=== PATIENT | female | born 2000 | race Caucasian/White ===

== ENCOUNTER 2024-07-13 06:17 | Emergency (ER) | payer OTHER, SELFPAY ==
[2024-07-13 06:18] VITALS: BP 125/70
[2024-07-13 06:19] VITALS: BP 125/70
[2024-07-13 06:29] VITALS: BMI 28.1
--- NOTE | 2024-07-13 06:47 | EDRN ---
The patients CO was 28 on the CO monitor.
--- NOTE | 2024-07-13 06:50 | EDRN ---
The patients CO level on CO monitor is 26.
[2024-07-13 07:00] VITALS: BP 126/71
[2024-07-13] MEDS: TYLENOL 650 MG PO (07:41)
--- NOTE | 2024-07-13 07:44 | ED.GENMED ---
History of Present Illness
General
Chief Complaint: Fainting/Passed Out
Time Seen by Provider: 07/13/24 07:06
History of Present Illness
History of Present Illness:
25-year-old female presents via EMS for evaluation after a syncopal event. Patient states she woke up in the [place] with a severe headache, states she gets migraines so she did not think much of it. Went to the bathroom and began to feel dizzy,
and actually she remembers is being woken up by her father breaking down the bathroom door. EMS responded and apparently registered airborne stable levels of 140 bpm. The entire family is in the ED for evaluation with variable symptoms including
headaches. Patient just returned home from college late last night and had shortest duration of time in the house
Review of Systems
Review of Systems
Allergies reviewed?: Yes
All Other Systems: ROS reviewed and negative except as documented in HPI and ROS
Phy Exam
Physical Exam
Physical Exam:
GEN: Well appearing, NAD, WDWN
HEENT: Mild ecchymosis to the inferior midline chin with no gross deformity or crepitus, otherwise normocephalic and atraumatic; oral mucosa moist, no scleral icterus, no nasal congestion
Cardiac: Regular rate
Lung: No respiratory distress, no tachypnea
MSK: No gross deformity or injuries
Skin: Good color, no pallor or jaundice, no rashes
Neuro: AO x3; CN II-XII grossly intact. BUE strength 5/5 in all ram, sensation intact and symmetric. BLE strength 5/5 in all ram, sensation intact and symmetric
Psych: Calm, cooperative
Course
Orders/Labs/Results
Orders:
Orders
07/13/24 07:07
Electrocardiogram (*1) Urgent
Reason for Study: Syncope
EKG- Treatment ONCE
07/13/24 07:39
Acetaminophen [Tylenol] 650 mg PO NOW STA
07/13/24 08:06
Carboxyhemoglobin Urgent
07/13/24 09:38
Carboxyhemoglobin Routine
Vital Signs
Initial and Last Documented VS:
Initial Vital Signs
BP
125/70
07/13/24 06:18
Last Documented Vital Signs
Temp Pulse Resp BP Pulse Ox
98.6 F 91 18 127/81 98
07/13/24 10:27 07/13/24 10:27 07/13/24 10:27 07/13/24 10:27 07/13/24 10:27
MDM/Problems Addressed
MDM/Problems Addressed:
EKG unremarkable, syncope likely on the basis of carbon oxide toxicity, improved with high flow oxygen in the emergency department, discharged in stable condition
Comment
Comment:
EKG independently interpreted by me shows a normal sinus rhythm at a rate of [address] changes concerning for ischemia, QTc of 430
*Critical Care Note
Total Time (30-74mins, 75-104mins- exclusive of procedures): Not Applicable
ED Attending Note
-
Portions of this chart may have been created with voice recognition software.� Occasional wrong word or��sound alike� substitutions may have occurred due to the inherent limitations of voice recognition software.
Discharge Plan
Departure
Patient Disposition: Home (Routine Discharge)
Date of Disposition: 07/13/24
Time of Disposition: 10:02
Patient with high blood pressure during this ER visit?: No
Discharge Problem:
Toxic effect of carbon monoxide, Syncope
Instructions: Syncope (Fainting) (DC), Carbon Monoxide Poisoning (DC)
Prescriptions:
No Action
desogestrel-ethinyl estradiol [Enskyce] 1 EACH tablet
1 ea PO DAILY
fexofenadine [Josselyn] 180 MG tablet
180 mg PO DAILY
fluoxetine 20 MG capsule
30 mg PO DAILY
Referrals:
Stephania Rodriguez PA [Family Provider] -
Interventions
Interventions:
*Risk Screen - Suicide Last Done: 07/13/24 06:19
*General Assessment Last Done: 07/13/24 06:19
*Neglect/Abuse Screening Last Done: 07/13/24 06:19
ED- Fall Risk Assessment Last Done: 07/13/24 10:27
*ED COVID-19 Vaccine History Last Done: 07/13/24 06:19
*Nursing Disposition Last Done: 07/13/24 10:27
ED- Cardiac Assessment Last Done: 07/13/24 07:05
ED- Neurological Assessment Last Done: 07/13/24 07:05
Discharge Date and Time
Discharge Date/Time: 07/13/24 10:29
Print Language: SPANISH
[2024-07-13 09:49] LABS: Carboxyhemoglobin 3.6 %
[2024-07-13 10:27] VITALS: BP 127/81
== END 2024-07-13 10:29 | disposition home or self-care (01) ==
LOC: EMR 06:17
PROVIDERS: Physician Assistant; EMERGENCY PHYSICIAN Emergency Medicine; FAMILY PHYSICIAN Physician Assistant Medical
DX: T58.91XA Toxic effect of carbon monoxide from unspecified source, accidental (unintentional), initial encounter (principal); R55 Syncope and collapse; Y92.008 Other place in unspecified non-institutional (private) residence as the place of occurrence of the external cause
CPT/HCPCS: 99284; 82375; 93005